=== PATIENT | female | born 1955 | race African-American/Black ===

== ENCOUNTER 2018-05-31 11:09 | Emergency (ER) | payer OTHER, MEDICARE, MEDICAID ==
--- NOTE | 2018-05-31 12:02 | ER Document Report ---
ED Medical Screen (RME) - General Chief Complaint: Leg Pain Stated Complaint: LEG PAIN Time Seen by Provider: 05/31/18 11:46 TRAVEL OUTSIDE OF THE U.S. IN LAST 30 DAYS: No - HPI Patient complains to provider of: Right leg pain Onset: Other - 8-year-old female presents for evaluation of pain and swelling in the right lower extremity postoperatively following a spine surgery at [place]. Denies any shortness of breath chest pain or otherwise. Has never had any clots in the past. - Related Data Allergies/Adverse Reactions: JOSE ANTONIO Inhibitors Allergy (Severe, Verified 05/31/18 11:26) Swollen tongue Past Medical History - Social History Chew tobacco use (# tins/day): No Frequency of alcohol use: Rare Drug Abuse: None - Past Medical History Cardiac Medical History: Reports: Hx Hypertension Denies: Hx Coronary Artery Disease, Hx Heart Attack Pulmonary Medical History: Reports: Hx Asthma - has not used inhaler recently for 3 years Denies: Hx Bronchitis, Hx COPD, Hx Pneumonia Neurological Medical History: Denies: Hx Cerebrovascular Accident, Hx Seizures Renal/ Medical History: Denies: Hx Peritoneal Dialysis Musculoskeltal Medical History: Reports Hx Arthritis Past Surgical History: Reports: Hx Breast Surgery, Hx Cholecystectomy, Hx Orthopedic Surgery - Back, ganglion cyst - Immunizations Hx Diphtheria, Pertussis, Tetanus Vaccination: No Physical Exam - Vital signs Vitals: Temp Pulse Resp BP Pulse Ox 98.4 F 114 H 14 142/92 H 95 05/31/18 11:28 05/31/18 11:28 05/31/18 11:28 05/31/18 11:28 05/31/18 11:28 Course - Re-evaluation Re-evalutation: 8-year-old female postoperative pain and swelling in the right lower extremity, will assess for possible DVT. Has no stigmata of phlegmasia at this time. Will require some further evaluation. 05/31/18 12:00 I have performed a rapid medical screening exam, I have evaluated the patient, I have made a determination based on this patient's medical condition for further evaluation. - Vital Signs Vital signs: Temp Pulse Resp BP Pulse Ox 98.4 F 114 H 14 142/92 H 95 05/31/18 11:28 05/31/18 11:28 05/31/18 11:28 05/31/18 11:28 05/31/18 11:28 Doctor's Discharge - Discharge Referrals: RAAHT LOVE HYDROLOGIC MODELER [Primary Care Provider] - Follow up as needed
--- NOTE | 2018-05-31 14:46 | ER Document Report ---
ED General - General Chief Complaint: Leg Pain Stated Complaint: LEG PAIN Time Seen by Provider: 05/31/18 11:46 TRAVEL OUTSIDE OF THE U.S. IN LAST 30 DAYS: No - HPI Notes: Patient is a 62-year-old female that presents to the emergency department for chief complaint of right leg swelling. Patient reports having a spinal fusion surgery at [place] on 05/19. She was told after surgery to look for any leg swelling. She noticed 2 days ago that she had an area on her right lower leg that was swollen and mildly painful to touch. She denies history of DVT or PE in the past. She denies any difficulty breathing, palpitations or chest pain. She has not taken any [id number] medication for this area. She does state that her back pain has improved since surgery and is feeling much better now. She denies any new concerns with her back. Past Medical History: Reviewed in chart Past Surgical History: Spinal fusion Social History: Reviewed in chart Family History: Reviewed and noncontributory for presenting illness Allergies: Reviewed, see documented allergy list. REVIEW OF SYSTEMS: CONSTITUTIONAL : No fever No chills No diaphoresis No recent illness EENT: No vision changes No congestion No sore throat CARDIOVASCULAR: No chest pain No palpitations RESPIRATORY: No shortness of breath No cough No difficulty breathing GASTROINTESTINAL: No abdominal pain No nausea No vomiting No diarrhea GENITOURINARY: No dysuria No hematuria No difficulty urinating MUSCULOSKELETAL: No back pain leg pain No arm pain SKIN: No rashes No lesions LYMPHATIC: No swollen, enlarged glands. NEUROLOGICAL: No lightheadedness No headache No weakness No paresthesias PSYCHIATRIC: No anxiety No depression PHYSICAL EXAMINATION: Vital signs reviewed, nursing noted reviewed. GENERAL: Well-appearing, well-nourished and in no acute distress. HEAD: Atraumatic, normocephalic. EYES: Eyes appear normal, extraocular movements intact, sclera anicteric, conjunctiva are normal. ENT: nares patent, oropharynx clear without exudates. Moist mucous membranes. NECK: Normal range of motion, supple without lymphadenopathy LUNGS: Breath sounds clear to auscultation bilaterally and equal. No wheezes rales or rhonchi. HEART: Regular rate and rhythm without murmurs ABDOMEN: Soft, nontender, normoactive bowel sounds. No rebound, guarding, or rigidity. No masses appreciated. EXTREMITIES: good range of motion, no pitting or edema. Small area of edema and tenderness on medial right calf. No overlying erythema or calor. No fluctuance. NEUROLOGICAL: No focal neurological deficits. Moves all extremities spontaneously Motor and sensory grossly intact on exam. PSYCH: Normal mood, normal affect. SKIN: Warm, Dry, normal turgor, no rashes or lesions noted on exposed skin - Related Data Allergies/Adverse Reactions: JOSE ANTONIO Inhibitors Allergy (Severe, Verified 05/31/18 11:26) Swollen tongue Past Medical History - Social History Smoking Status: Current Every Day Smoker Chew tobacco use (# tins/day): No Frequency of alcohol use: Rare Drug Abuse: None Family History: Reviewed & Not Pertinent Patient has suicidal ideation: No Patient has homicidal ideation: No - Past Medical History Cardiac Medical History: Reports: Hx Hypertension Denies: Hx Coronary Artery Disease, Hx Heart Attack Pulmonary Medical History: Reports: Hx Asthma - has not used inhaler recently for 3 years Denies: Hx Bronchitis, Hx COPD, Hx Pneumonia Neurological Medical History: Denies: Hx Cerebrovascular Accident, Hx Seizures Renal/ Medical History: Denies: Hx Peritoneal Dialysis Musculoskeletal Medical History: Reports Hx Arthritis Past Surgical History: Reports: Hx Breast Surgery, Hx Cholecystectomy, Hx Orthopedic Surgery - Back, ganglion cyst - Immunizations Hx Diphtheria, Pertussis, Tetanus Vaccination: No Review of Systems - Review of Systems Notes: Dictated Physical Exam - Vital signs Vitals: Temp Pulse Resp BP Pulse Ox 98.4 F 114 H 14 142/92 H 95 05/31/18 11:28 05/31/18 11:28 05/31/18 11:28 05/31/18 11:28 05/31/18 11:28 - Notes Notes: Dictated Course - Re-evaluation Re-evalutation: 05/31/18 14:46 Vitals reviewed. Nursing notes reviewed. Patient offered medication for pain but declined. There is no overlying warmth or erythema and no signs of abscess or cellulitis. 05/31/18 15:12 Venous duplex of right lower extremity negative for acute DVT. Patient will follow with her primary care in the next few days for reevaluation. She will return for new or worsening symptoms. Discharged home in stable condition. - Vital Signs Vital signs: Temp Pulse Resp BP Pulse Ox 98.4 F 114 H 14 142/92 H 95 05/31/18 11:28 05/31/18 11:28 05/31/18 11:28 05/31/18 11:28 05/31/18 11:28 Discharge - Discharge Clinical Impression: Leg swelling Condition: Stable Disposition: HOME, SELF-CARE Instructions: Leg Pain Nonspecific ([facility]) Additional Instructions: Please return to the emergency department if you have any worsening, or concern of your symptoms. Please return to the emergency department if you develop chest pain, difficulty breathing, severe abdominal pain, or ongoing vomiting. Please follow-up with your primary care physician in 2-3 days and any other recommended physicians. If prescribed, take all medications as directed. If you have any questions or concerns do not hesitate to return the emergency department for evaluation. [] Referrals: RAHAT LOVE NP [NO LOCAL MD] - Follow up in 3-5 days
[2018-05-31 15:42] VITALS: BP 138/91
--- NOTE | 2018-05-31 19:27 | XCELERA REPORT ---
[address] [facility] [place] [id number] Lower Extremity Venous Evaluation Procedure: Color flow and duplex imaging of the veins of the right lower extremity as well as the left Common Femoral vein. Right Sided Venous Evaluation Normal vessel filling wall to wall, compression and augmentation as well as Colour flow down to the infrageniculate veins. Left Sided Venous Evaluation The left common femoral vein is fully compressible. Spontaneous and phasic flow is present in the left common femoral vein. Interpretation Summary No duplex evidence of DVT or obstruction in the right lower extremity nor in the left Common Femoral vein. Name: CHIKA CANTU Age: 62 yrs Gender: Female : 1955 Patient Status: Emergency Patient Location: ER Study Date: 05/31/2018 01:47 PM Reason For Study: concern for DVT RLE Ordering Physician: MARIUSZ LALA Performed By: Lashanda Nevarez : MARIUSZ LALA > Donald Castaneda
== END 2018-05-31 15:42 | disposition home or self-care (01) ==
LOC: ER 11:09
DX: M79.89 Other specified soft tissue disorders (principal); M79.606 Pain in leg, unspecified; F17.200 Nicotine dependence, unspecified, uncomplicated; I10 Essential (primary) hypertension; J45.909 Unspecified asthma, uncomplicated; Z98.1 Arthrodesis status; Z88.8 Allergy status to other drugs, medicaments and biological substances
CPT/HCPCS: 93971; 99283

== ENCOUNTER 2018-10-25 13:41 | Emergency (ER) | payer MEDICARE, MEDICAID ==
[2018-10-25 15:16] LABS: ABSOLUTE EOSINOPHILS # (AUTO) 0.1 10^3/uL (0.0-0.6); ABSOLUTE LYMPHOCYTES (AUTO) 3.1 10^3/uL (0.5-4.7); ABSOLUTE MONOCYTES (AUTO) 0.5 10^3/uL (0.1-1.4); BASOPHILS % (AUTO) 0.4 % (0-2); EOSINOPHILS % (AUTO) 1.2 % (0-6); HEMATOCRIT 43.3 % (36.0-47.0); LYMPHOCYTES % (AUTO) 45.9 % (13-45); MEAN CORPUSCULAR HEMOGLOBIN 29.6 pg (27.0-33.4); MEAN CORPUSCULAR HGB CONC 34.6 g/dL (32.0-36.0); MEAN CORPUSCULAR VOLUME 86 fl (80-97); PLATELET COUNT 264 10^3/uL (150-450); RED BLOOD COUNT 5.06 10^6/uL (3.72-5.28); RED CELL DISTRIBUTION WIDTH 14.4 % (11.5-14.0); SEGMENTED NEUTROPHILS % (AUTO) 44.5 % (42-78); TOTAL CELLS COUNTED % (AUTO) 100 %; WHITE BLOOD COUNT 6.7 10^3/uL (4.0-10.5)
[2018-10-25 15:38] LABS: ALANINE AMINOTRANSFERASE 25 U/L (9-52); ALBUMIN 4.9 g/dL (3.5-5.0); ALKALINE PHOSPHATASE 97 U/L (38-126); ANION GAP 12 (5-19); ASPARTATE AMINO TRANSFERASE 23 U/L (14-36); BILIRUBIN,DIRECT 0.1 mg/dL (0.0-0.4); BILIRUBIN,TOTAL 0.4 mg/dL (0.2-1.3); BLOOD UREA NITROGEN 18 mg/dL (7-20); CALCIUM 10.2 mg/dL (8.4-10.2); CARBON DIOXIDE 31 mmol/L (22-30); CHLORIDE 100 mmol/L (98-107); GLUCOSE 91 mg/dL (75-110); POTASSIUM 4.2 mmol/L (3.6-5.0); SODIUM 142.8 mmol/L (137-145); TOTAL PROTEIN 8.8 g/dL (6.3-8.2)
[2018-10-25 15:54] LABS: FREE T3 3.42 pg/mL (2.77-5.27); FREE T4 (FREE THYROXINE) 1.18 ng/dL (0.78-2.19)
[2018-10-25 16:07] LABS: THYROID STIMULATING HORMONE 0.79 uIU/mL (0.47-4.68)
--- NOTE | 2018-10-25 16:21 | ER Document Report ---
Entered by ERIC MOCTEZUMA SCRIBE 10/25/18 1442 Acting as scribe for:MIRNA SOTO DO ED Medical Screen (RME) - General Chief Complaint: Palpitations Stated Complaint: DIZZINESS Time Seen by Provider: 10/25/18 14:19 Primary Care Provider: RYAN VERDUGO DO [Primary Care Provider] - Follow up as needed Mode of Arrival: Wheelchair Information source: Patient Notes: Patient is a 52-year-old female presenting to the emergency department com plaining of heart palpitations that 4 days ago. She states that she had a medical friend take her heart rate and she found it to be approximately 103 bpm. She also complains of right ear pain in the right side of the face further stating "it feels funny." She states her heart rate is increased with standing and relieved when sitting. 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 Patient reports taking amlodipine, 81 mg of aspirin, potassium, HCTZ, metformin. I have greeted and performed a rapid initial assessment of the patient. A comprehensive ED assessment and evaluation of the patient, analysis of test results, and completion of the medical decision making process will be conducted by additional ED providers. GENERAL: Alert, interacts well. No acute distress. HEAD: Normocephalic, atraumatic. EYES: Pupils equal, round, and reactive to light. Extraocular movements intact. ENT: Oral mucosa moist, tongue midline. NECK: Full range of motion. Supple. Trachea midline. LUNGS: Clear to auscultation bilaterally, no wheezes, rales, or rhonchi. No respiratory distress. HEART: Regular rate and rhythm. No murmurs, gallops, or rubs. ABDOMEN: Soft, non-tender. Non-distended. Bowel sounds present in all 4 quadrants. No guarding, rigidity, or rebound. EXTREMITIES: Moves all 4 extremities spontaneously. No edema, radial and dorsalis pedis pulses 2/4 bilaterally. No cyanosis. NEUROLOGICAL: Alert and oriented x3. Normal speech. PSYCH: Normal affect, normal mood. SKIN: Warm, dry, normal turgor. No rashes or lesions noted. TRAVEL OUTSIDE OF THE U.S. IN LAST 30 DAYS: No - Related Data Allergies/Adverse Reactions: JOSE ANTONIO Inhibitors Allergy (Severe, Verified 10/25/18 13:42) Swollen tongue Past Medical History - Social History Frequency of alcohol use: Rare Drug Abuse: None - Past Medical History Cardiac Medical History: Reports: Hx Hypertension Denies: Hx Coronary Artery Disease, Hx Heart Attack Pulmonary Medical History: Reports: Hx Asthma - has not used inhaler recently f or 3 years Denies: Hx Bronchitis, Hx COPD, Hx Pneumonia Neurological Medical History: Denies: Hx Cerebrovascular Accident, Hx Seizures Endocrine Medical History: Reports: Hx Diabetes Mellitus Type 2 - borderline Renal/ Medical History: Denies: Hx Peritoneal Dialysis Musculoskeltal Medical History: Reports Hx Arthritis Past Surgical History: Reports: Hx Breast Surgery, Hx Cholecystectomy, Hx Orthopedic Surgery - Back, ganglion cyst, R ankle - Immunizations Hx Diphtheria, Pertussis, Tetanus Vaccination: No Physical Exam - Vital signs Vitals: Temp Pulse Resp BP Pulse Ox 97.9 F 90 18 141/91 H 98 10/25/18 13:56 10/25/18 13:56 10/25/18 13:56 10/25/18 13:56 10/25/18 13:56 Course - Vital Signs Vital signs: Temp Pulse Resp BP Pulse Ox 97.9 F 90 18 141/91 H 98 10/25/18 13:56 10/25/18 13:56 10/25/18 13:56 10/25/18 13:56 10/25/18 13:56 - Laboratory Result Diagrams: 10/25/18 14:43 10/25/18 14:43 Laboratory results interpreted by me: 10/25/18 10/25/18 14:43 14:43 RDW 14.4 H Lymphocytes % 45.9 H Carbon Dioxide 31 H Total Protein 8.8 H Doctor's Discharge - Discharge Referrals: RYAN VERDUGO DO [Primary Care Provider] - Follow up as needed I personally performed the services described in the documentation, reviewed and edited the documentation which was dictated to the scribe in my presence, and it accurately records my words and actions.
[2018-10-25] MEDS ORDERED: MECLIZINE HCL 25 MG TABLET PO ONE (17:10)
[2018-10-25] MEDS ORDERED: ONDANSETRON 4 MG TAB.RAPDIS PO ONE (17:10)
--- NOTE | 2018-10-25 17:32 | ER Document Report ---
ED General - General Chief Complaint: Palpitations Stated Complaint: DIZZINESS Time Seen by Provider: 10/25/18 14:19 Primary Care Provider: RYAN VERDUGO DO [NO LOCAL MD] - Follow up tomorrow Mode of Arrival: Wheelchair Information source: Patient, [facility] Records Notes: 62-year-old female presents with complaint of dizziness, palpitations. Patient states dizziness started 4 days prior to arrival. She describes it as the room spinning. She states that it is worse when she turns her head to the right or lays onto her right side. Patient has had associated intermittent aching headache. This morning she awoke with right ear fullness and right facial numb ness which is new for her. 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 Denies any recent illness. TRAVEL OUTSIDE OF THE [place].S. IN LAST 30 DAYS: No - HPI Onset: Other Onset/Duration: Intermittent Quality of pain: Achy Severity: Mild Associated symptoms: Earache. denies: Body/muscle aches, Chest pain, Diarrhea, Fever, Nausea, Vomiting Exacerbated by: Standing, Movement, Walking Relieved by: Supine, Remaining still Similar symptoms previously: Yes Recently seen / treated by doctor: No - Related Data Allergies/Adverse Reactions: JOSE ANTONIO Inhibitors Allergy (Severe, Verified 10/25/18 13:42) Swollen tongue Past Medical History - General Information source: Patient - Social History Smoking Status: Former Smoker Frequency of alcohol use: Rare Drug Abuse: None Lives with: Family Family History: Reviewed & Not Pertinent Patient has suicidal ideation: No Patient has homicidal ideation: No - Past Medical History Cardiac Medical History: Reports: Hx Hypertension Denies: Hx Coronary Artery Disease, Hx Heart Attack Pulmonary Medical History: Reports: Hx Asthma - has not used inhaler recently for 3 years Denies: Hx Bronchitis, Hx COPD, Hx Pneumonia Neurological Medical History: Denies: Hx Cerebrovascular Accident, Hx Seizures Endocrine Medical History: Reports: Hx Diabetes Mellitus Type 2 - borderline Renal/ Medical History: Denies: Hx Peritoneal Dialysis Musculoskeletal Medical History: Reports Hx Arthritis Past Surgical History: Reports: Hx Breast Surgery, Hx Cholecystectomy, Hx Orthopedic Surgery - Back, ganglion cyst, R ankle - Immunizations Hx Diphtheria, Pertussis, Tetanus Vaccination: No Review of Systems - Review of Systems Constitutional: denies: Fever, Recent illness EENT: Other - Ear fullness. denies: Blurred vision, Difficulty swallowing, Mouth pain Cardiovascular: Palpitations, Dizziness. denies: Chest pain Respiratory: denies: Cough, Short of breath Gastrointestinal: denies: Nausea, Vomiting, Poor appetite, Poor fluid intake Genitourinary: denies: Flank pain Female Genitourinary: No symptoms reported Musculoskeletal: denies: Back pain Skin: denies: Rash Hematologic/Lymphatic: No symptoms reported Neurological/Psychological: Numbness - Right-sided facial numbness. denies: Lost consciousness, Headaches -: Yes All other systems reviewed and negative Physical Exam - Vital signs Vitals: Temp Pulse Resp BP Pulse Ox 97.9 F 90 18 141/91 H 98 10/25/18 13:56 10/25/18 13:56 10/25/18 13:56 10/25/18 13:56 10/25/18 13:56 - Notes Notes: PHYSICAL EXAMINATION: GENERAL: Well-appearing, well-nourished and in no acute distress. HEAD: Atraumatic, normocephalic. EYES: Pupils equal round and reactive to light, extraocular movements intact, conjunctiva are normal. ENT: Nares patent, oropharynx clear without exudates. Moist mucous membranes. NECK: Normal range of motion, supple without lymphadenopathy LUNGS: Breath sounds clear to auscultation bilaterally and equal. No wheezes rales or rhonchi. HEART: Regular rate and rhythm without murmurs ABDOMEN: Soft, nontender, nondistended abdomen. No guarding, no rebound. No masses appreciated. Female : deferred Musculoskeletal: Normal range of motion, no pitting or edema. No cyanosis. NEUROLOGICAL: Neuro exam Mental status; alert and oriented x3. Cranial nerves II through XII intact. Sensation intact to sharp/dull differentiation in all extremities. Motor; normal tone. No abnormal movements appreciated. No pronator drift. Strength tested and 5/5 in bilateral wrist flexion/extension, elbow flexion/extension, shoulder abduction, straight leg raise, knee flexion/extension, ankle dorsiflexion/plantar flexion. Patient ambulates with a steady gait. Coordination; no ataxia. Finger to nose and heel to stephenson testing intact bilaterally. Reflexes; brachial radialis, biceps, and patellar reflexes within normal limits and symmetric bilaterally. Babinski with downgoing toes bilaterally. NIH-1 for mild ataxia of the right upper extremity PSYCH: Normal mood, normal affect. SKIN: Warm, Dry, normal turgor, no rashes or lesions noted. Course - Re-evaluation Re-evalutation: 10/25/18 17:37 Laboratory 10/25/18 10/25/18 10/25/18 14:43 14:43 14:43 WBC 6.7 RBC 5.06 Hgb 15.0 Hct 43.3 MCV 86 MCH 29.6 MCHC 34.6 RDW 14.4 H Plt Count 264 Seg Neutrophils % 44.5 Lymphocytes % 45.9 H Monocytes % 8.0 Eosinophils % 1.2 Basophils % 0.4 Absolute Neutrophils 3.0 Absolute Lymphocytes 3.1 Absolute Monocytes 0.5 Absolute Eosinophils 0.1 Absolute Basophils 0.0 Sodium 142.8 Potassium 4.2 Chloride 100 Carbon Dioxide 31 H Anion Gap 12 BUN 18 Creatinine 0.82 Est GFR ( Amer) > 60 Est GFR (Non-Af Amer) > 60 Glucose 91 Calcium 10.2 Total Bilirubin 0.4 Direct Bilirubin 0.1 Neonat Total Bilirubin Not Reportable Neonat Direct Bilirubin Not Reportable Neonat Indirect Bili Not Reportable AST 23 ALT 25 Alkaline Phosphatase 97 Troponin I Total Protein 8.8 H Albumin 4.9 TSH 0.79 Free T4 1.18 Free T3 pg/mL 3.42 10/25/18 14:43 WBC RBC Hgb Hct MCV MCH MCHC RDW Plt Count Seg Neutrophils % Lymphocytes % Monocytes % Eosinophils % Basophils % Absolute Neutrophils Absolute Lymphocytes Absolute Monocytes Absolute Eosinophils Absolute Basophils Sodium Potassium Chloride Carbon Dioxide Anion Gap BUN Creatinine Est GFR ( Amer) Est GFR (Non-Af Amer) Glucose Calcium Total Bilirubin Direct Bilirubin Neonat Total Bilirubin Neonat Direct Bilirubin Neonat Indirect Bili AST ALT Alkaline Phosphatase Troponin I < 0.012 Total Protein Albumin TSH Free T4 Free T3 pg/mL Temp Pulse Resp BP Pulse Ox 97.9 F 90 18 141/91 H 100 10/25/18 13:56 10/25/18 13:56 10/25/18 13:56 10/25/18 13:56 10/25/18 16:[address] 10/25/18 17:09 IMPRESSION: No acute intracranial findings.Postsurgical changes in the right fronto-temporal region. EVIDENCE OF ACUTE STROKE: NO. Head MRI 10/25/18 17:09 IMPRESSION: Negative for acute or subacute infarction.NO ENHANCING LESIONS. Scattered high-signal intensity lesions scattered throughout the white matter on FLAIR imaging with distribution suggesting chronic microvascular ischemic change. . EVIDENCE OF ACUTE STROKE: NO. Temp Pulse Resp BP Pulse Ox 97.4 F 90 27 H 137/94 H 97 10/25/18 20:00 10/25/18 13:56 10/25/18 21:00 10/25/18 21:14 10/25/18 21:00 10/25/18 19:18 Patient reevaluated and reports improvement of her dizziness. Patient has been eating and drinking normally. Patient is ambulating without difficulty. She has no neuro deficits except for mild ataxia which resolved on reevaluation. CT of the brain shows postsurgical changes in the right frontal temporal region. MRI of the brain is negative for acute or subacute infarct. Patient was provided copies of her imaging today. She was urged to follow-up with her neurologist. Patient was discharged home in stable condition. 10/26/18 00:26 10/27/18 00:29 - Vital Signs Vital signs: Temp Pulse Resp BP Pulse Ox 97.4 F 90 27 H 137/94 H 97 10/25/18 20:00 10/25/18 13:56 10/25/18 21:00 10/25/18 21:14 10/25/18 21:00 - Laboratory Result Diagrams: 10/25/18 14:43 10/25/18 14:43 Laboratory results interpreted by me: 10/25/18 10/25/18 14:43 14:43 RDW 14.4 H Lymphocytes % 45.9 H Carbon Dioxide 31 H Total Protein 8.8 H - Diagnostic Test Radiology reviewed: Image reviewed, Reports reviewed Discharge - Discharge Clinical Impression: Dizziness, Palpitations Condition: Good Disposition: HOME, SELF-CARE Instructions: Dizziness ([facility]), Palpitations (Irregular or Rapid Heartrate) ([facility]) Additional Instructions: Follow up with your [id number] hours for further care or return to the ED IMMEDIATELY if symptoms worsen or you have any concerns. If you cannot afford to follow up with your primary care physician a list of low cost clinics have been provided at the end of your discharge papers as well. Most prescribed medications have multiple side effects. The safest thing to do is when filling your prescription speak to your pharmacist regarding possible interactions with your normal home medications and over the counter medications such as Ibuprofen, Tylenol, Benadryl. If you experience any symptoms that cause you discomfort or concern you should discontinue the medication immediately and return to the emergency room or call your primary care physician. Prescriptions: RX: Meclizine HCl [Antivert 25 mg Tablet] 25 mg PO TID PRN #21 tablet PRN Reason: Forms: Elevated Blood Pressure Referrals: RYAN VERDUGO DO [NO LOCAL MD] - Follow up tomorrow
--- NOTE | 2018-10-25 18:11 | RADIOLOGY REPORT (SQ) ---
EXAM DESCRIPTION: CT HEAD WITHOUT COMPLETED DATE/TIME: 10/25/2018 5:25 pm REASON FOR STUDY: Right-sided weakness, numbness COMPARISON: None. TECHNIQUE: Axial images acquired through the brain without intravenous contrast. Images reviewed wi th bone, brain and subdural windows. Images stored on PACS. All CT scanners at this facility use dose modulation, iterative reconstruction, and/or weight based d osing when appropriate to reduce radiation dose to as low as reasonably achievable (ALARA). [facility]: Dose Right [facility]: CareDose [facility]: Dose Right [facility]: Teradose 4D [facility]: Smart Teedot RADIATION DOSE: CT Rad equipment meets quality standard of care and radiation dose reduction techniq ues were employed. CTDIvol: 53.2 mGy. DLP: 1017 mGy-cm. mGy. LIMITATIONS: None. FINDINGS: VENTRICLES: Normal size and contour. CEREBRUM: No masses. No hemorrhage. No midline shift. No evidence for acute infarction. Normal gra y/white matter differentiation. No areas of low density in the white matter. CEREBELLUM: No masses. No hemorrhage. No alteration of density. No evidence for acute infarction. EXTRAAXIAL SPACES: No fluid collections. No masses. ORBITS AND GLOBE: No intra- or extraconal masses. Normal contour of globe without masses. CALVARIUM: Postsurgical changes in the right fronto-temporal region. No fracture. PARANASAL SINUSES: No fluid or mucosal thickening. SOFT TISSUES: No mass or hematoma. OTHER: No other significant finding. IMPRESSION: No acute intracranial findings.Postsurgical changes in the right fronto-temporal region. EVIDENCE OF ACUTE STROKE: NO. COMMENT: Quality ID # [id number]: Final reports with documentation of one or more dose reduction techniques (e.g., Automated exposure control, adjustment of the mA and/or kV according to patient size, use of iterative reconstruction technique) TECHNICAL DOCUMENTATION: JOB ID: [id number] [place]-72 2010 [employer]- All Rights Reserved Reading location - IP/workstation name: [email or web address]
--- NOTE | 2018-10-25 19:30 | RADIOLOGY REPORT (SQ) ---
EXAM DESCRIPTION: MRI HEAD COMBO COMPLETED DATE/TIME: 10/25/2018 7:11 pm REASON FOR STUDY: right sided weakness COMPARISON: Earlier head CT TECHNIQUE: Multiplanar imaging includes noncontrasted T1, T2, FLAIR, and Diffusion with ADC map seq uences. Contrast enhanced T1 images. Images stored on PACS. CONTRAST TYPE AND DOSE: 15 mL Dotarem. RENAL FUNCTION: Not indicated. ACR Type II contrast agent associated with few, if any, unconfounded cases of NSF LIMITATIONS: None. FINDINGS: ANATOMY: No anomalies. Normal vascular flow voids. Pituitary fossa normal. CSF SPACES: Normal size and contour. No hemorrhage. CEREBRUM: Scattered high-signal intensity lesions scattered throughout the white matter on FLAIR imag ing with distribution suggesting chronic microvascular ischemic change. Sulci and gyri normal in size and contour. No evidence of hemorrhage, mass or extraaxial fluid collection. No enhancing lesions. POSTERIOR FOSSA: No signal alteration. No hemorrhage. No edema, masses or mass effect. Internal audit ory canals, cerebello-pontine angles, mastoids normal. DIFFUSION: Negative for acute or subacute infarction. ORBITS: No masses. Globes normal. PARANASAL SINUSES: No fluid levels. Mucosa normal. OTHER: No other significant finding. IMPRESSION: Negative for acute or subacute infarction.NO ENHANCING LESIONS. Scattered high-signal in tensity lesions scattered throughout the white matter on FLAIR imaging with distribution suggesting c hronic microvascular ischemic change. . EVIDENCE OF ACUTE STROKE: NO. TECHNICAL DOCUMENTATION: JOB ID: [id number] [place]-72 2010 [employer]- All Rights Reserved Reading location - IP/workstation name: [email or web address]
[2018-10-25 21:14] VITALS: BP 137/94
--- NOTE | 2018-10-26 01:30 | EKG REPORT ---
SEVERITY:- NORMAL ECG - SINUS RHYTHM : Confirmed by: Ifeoma Marte MD 26-Oct-2018 01:29:23
== END 2018-10-25 21:14 | disposition home or self-care (01) ==
LOC: ER 13:41
DX: R42 Dizziness and giddiness (principal); R00.2 Palpitations; G93.9 Disorder of brain, unspecified; R27.0 Ataxia, unspecified; R51 Headache; R20.0 Anesthesia of skin; H92.09 Otalgia, unspecified ear; I10 Essential (primary) hypertension; J45.909 Unspecified asthma, uncomplicated; Z87.891 Personal history of nicotine dependence; Z88.8 Allergy status to other drugs, medicaments and biological substances
CPT/HCPCS: 93005; 99284; 36415; 84439; 84443; 85025; 80053; 84484; 84481; 70553; 70450; 93010; A9270 ×2; S0119

== ENCOUNTER 2019-01-08 11:46 | Emergency (ER) | payer OTHER, MEDICARE, MEDICAID ==
--- NOTE | 2019-01-08 12:28 | ER Document Report ---
ED Medical Screen (RME) - General Chief Complaint: Breathing Difficulty Stated Complaint: DIFFICULTY BREATHING Time Seen by Provider: 01/08/19 12:23 Mode of Arrival: Ambulatory Information source: Patient Notes: Patient presents emergency department with complaints of difficulty breathing for the past week. She reports that she is unable to lay flat has to prop herself up with a couple pillows because of the difficulty breathing. She denies other symptoms such as fever vomiting diarrhea. When she is walking around she does not feel as bad. She reports she still feels labored breathing but not as bad as when she tries to sit down or lay down. Denies history of cardiac disease. Reports history of asthma no wheezing noted respiratory rate even unlabored sinus tach I have greeted and performed a rapid initial assessment of this patient. A comprehensive ED assessment and evaluation of the patient, analysis of test results and completion of the medical decision making process will be conducted by additional ED providers. Dictation of this chart was performed using voice recognition software; therefore, there may be some unintended grammatical errors. TRAVEL OUTSIDE OF THE [place] IN LAST 30 DAYS: No - Related Data Allergies/Adverse Reactions: JOSE ANTONIO Inhibitors Allergy (Severe, Verified 01/08/19 11:47) Swollen tongue Past Medical History - Past Medical History Cardiac Medical History: Reports: Hx Hypertension Denies: Hx Coronary Artery Disease, Hx Heart Attack Pulmonary Medical History: Reports: Hx Asthma - has not used inhaler recently for 3 years Denies: Hx Bronchitis, Hx COPD, Hx Pneumonia Neurological Medical History: Denies: Hx Cerebrovascular Accident, Hx Seizures Endocrine Medical History: Reports: Hx Diabetes Mellitus Type 2 - borderline Renal/ Medical History: Denies: Hx Peritoneal Dialysis Musculoskeltal Medical History: Reports Hx Arthritis Past Surgical History: Reports: Hx Breast Surgery, Hx Cholecystectomy, Hx Orthopedic Surgery - Back, ganglion cyst, R ankle - Immunizations Hx Diphtheria, Pertussis, Tetanus Vaccination: No Physical Exam - Vital signs Vitals: Temp Pulse Resp BP Pulse Ox 97.8 F 104 H 22 H 144/85 H 98 01/08/19 11:55 01/08/19 11:55 01/08/19 11:55 01/08/19 11:55 01/08/19 11:55 Course - Vital Signs Vital signs: Temp Pulse Resp BP Pulse Ox 97.8 F 104 H 22 H 144/85 H 98 01/08/19 11:55 01/08/19 11:55 01/08/19 11:55 01/08/19 11:55 01/08/19 11:55
--- NOTE | 2019-01-08 13:44 | RADIOLOGY REPORT (SQ) ---
EXAM DESCRIPTION: CHEST 2 VIEWS COMPLETED DATE/TIME: 01/08/2019 1:32 pm REASON FOR STUDY: difficulty breathing COMPARISON: 03/24/2016 TECHNIQUE: Frontal and lateral radiographic views of the chest acquired. NUMBER OF VIEWS: Two view. LIMITATIONS: None. FINDINGS: LUNGS AND PLEURA: No pneumothorax. No consolidation or pleural effusion. MEDIASTINUM AND HILAR STRUCTURES: Stable. HEART AND VASCULAR STRUCTURES: Stable. BONES: No acute findings. HARDWARE: None in the chest. OTHER: No other significant finding. IMPRESSION: NO ACUTE FINDINGS. TECHNICAL DOCUMENTATION: JOB ID: [id number] [place]-72 2010 [employer]- All Rights Reserved Reading location - IP/workstation name: [email or web address]
[2019-01-08 13:45] LABS: ABSOLUTE EOSINOPHILS # (AUTO) 0.1 10^3/uL (0.0-0.6); ABSOLUTE LYMPHOCYTES (AUTO) 2.4 10^3/uL (0.5-4.7); ABSOLUTE MONOCYTES (AUTO) 0.4 10^3/uL (0.1-1.4); BASOPHILS % (AUTO) 0.5 % (0-2); EOSINOPHILS % (AUTO) 1.3 % (0-6); HEMATOCRIT 43.2 % (36.0-47.0); HEMOGLOBIN 14.6 g/dL (12.0-15.5); LYMPHOCYTES % (AUTO) 41.1 % (13-45); MEAN CORPUSCULAR HEMOGLOBIN 29.3 pg (27.0-33.4); MEAN CORPUSCULAR HGB CONC 33.8 g/dL (32.0-36.0); MEAN CORPUSCULAR VOLUME 86 fl (80-97); PLATELET COUNT 258 10^3/uL (150-450); RED CELL DISTRIBUTION WIDTH 14.2 % (11.5-14.0); SEGMENTED NEUTROPHILS % (AUTO) 51.1 % (42-78); TOTAL CELLS COUNTED % (AUTO) 100 %; WHITE BLOOD COUNT 5.9 10^3/uL (4.0-10.5)
[2019-01-08 13:52] LABS: ALANINE AMINOTRANSFERASE 23 U/L (9-52); ALBUMIN 4.3 g/dL (3.5-5.0); ALKALINE PHOSPHATASE 98 U/L (38-126); ANION GAP 12 (5-19); ASPARTATE AMINO TRANSFERASE 24 U/L (14-36); BILIRUBIN,DIRECT 0.2 mg/dL (0.0-0.4); BILIRUBIN,TOTAL 0.5 mg/dL (0.2-1.3); BLOOD UREA NITROGEN 10 mg/dL (7-20); CALCIUM 10.3 mg/dL (8.4-10.2); CARBON DIOXIDE 29 mmol/L (22-30); CHLORIDE 103 mmol/L (98-107); CREATINE KINASE 143 U/L (30-135); GLUCOSE 134 mg/dL (75-110); POTASSIUM 3.5 mmol/L (3.6-5.0); SODIUM 144.2 mmol/L (137-145); TOTAL PROTEIN 8.2 g/dL (6.3-8.2)
[2019-01-08 14:03] LABS: NT PRO BNP 19 pg/mL (5-900)
[2019-01-08 14:06] LABS: TROPONIN I < 0.012 ng/mL
[2019-01-08 14:38] LABS: APPEARANCE,URINE CLOUDY; BILIRUBIN,URINE NEGATIVE (NEGATIVE); COLOR,URINE YELLOW; GLUCOSE, URINE NEGATIVE (NEGATIVE); KETONES,URINE NEGATIVE (NEGATIVE); LEUKOCYTE ESTERASE,URINE NEGATIVE (NEGATIVE); NITRITE,URINE NEGATIVE (NEGATIVE); PROTEIN,URINE NEGATIVE (NEGATIVE); URINE SPECIFIC GRAVITY 1.013; UROBILINOGEN,URINE NEGATIVE mg/dL (<2.0)
[2019-01-08] MEDS ORDERED: ALBUTEROL SULFATE HFA (90 MCG/PUFF) 8 GM MDI (1 MDI/ER DISP) IH ONE (14:42)
[2019-01-08 15:34] VITALS: BP 140/86
--- NOTE | 2019-01-08 17:42 | EKG REPORT ---
SEVERITY:- OTHERWISE NORMAL ECG - SINUS TACHYCARDIA BORDERLINE LEFT AXIS DEVIATION : Confirmed by: Fernie Ivan MD 08-Jan-2019 17:42:10
--- NOTE | 2019-01-08 22:44 | ER Document Report ---
Entered by VENKAT BRANCH SCRIBE 01/08/19 1443 Acting as scribe for:MIRNA SOTO DO ED General - General Chief Complaint: Breathing Difficulty Stated Complaint: BREATHING DIFFICULTY Time Seen by Provider: 01/08/19 12:23 Primary Care Provider: VIANCA,JOSHUA [Primary Care Provider] - Follow up as needed Mode of Arrival: Ambulatory Notes: Patient is a 63-year-old female presents the emergency department complaining of shortness of breath that started approximately 1 week ago, patient states that the shortness of breath gets progressively worse as the day goes on however completely resolved by the time she wakes up the next morning. It is worsened with laying flat. The cough is productive of minimal phlegm, she did start taking an epinephrine inhaler recently which causes her to cough briefly but otherwise does not change the shortness of breath. This was not prescribed by physician, she got it from a pharmacist. Patient denies any blurred vision, drooping eyelids, chest pain, or hoarse voice or history of myasthenia gravis. She does have intermittent tingling in her fingers. TRAVEL OUTSIDE OF THE [place] IN LAST 30 DAYS: No - Related Data Allergies/Adverse Reactions: JOSE ANTONIO Inhibitors Allergy (Severe, Verified 01/08/19 11:47) Swollen tongue Past Medical History - General Information source: Patient - Social History Smoking Status: Former Smoker - Quit in July 2018 Cigarette use (# per day): No Chew tobacco use (# tins/day): No Frequency of alcohol use: None Drug Abuse: None Family History: Reviewed & Not Pertinent Patient has suicidal ideation: No Patient has homicidal ideation: No - Past Medical History Cardiac Medical History: Reports: Hx Hypertension Pulmonary Medical History: Reports: Hx Asthma EENT Medical History: Reports: Eyes - Glaucoma Endocrine Medical History: Reports: Hx Diabetes Mellitus Type 2 - borderline Musculoskeletal Medical History: Reports Hx Arthritis Psychiatric Medical History: Reports: Hx Depression Past Surgical History: Reports: Hx Breast Surgery, Hx Cholecystectomy, Hx Orthopedic Surgery - Back, ganglion cyst, R ankle - Immunizations Hx Diphtheria, Pertussis, Tetanus Vaccination: No Review of Systems - Review of Systems Constitutional: No symptoms reported EENT: See HPI, Nose congestion. denies: Blurred vision Cardiovascular: See HPI, Orthopnea. denies: Chest pain Respiratory: See HPI, Cough, Short of breath Gastrointestinal: No symptoms reported Genitourinary: No symptoms reported Female Genitourinary: No symptoms reported Musculoskeletal: No symptoms reported Skin: No symptoms reported Hematologic/Lymphatic: No symptoms reported Neurological/Psychological: See HPI, Tingling -: Yes All other systems reviewed and negative Physical Exam - Vital signs Vitals: Temp Pulse Resp BP Pulse Ox 97.8 F 104 H 22 H 144/85 H 98 01/08/19 11:55 01/08/19 11:55 01/08/19 11:55 01/08/19 11:55 01/08/19 11:55 Interpretation: Tachycardic - Notes Notes: PHYSICAL EXAM GENERAL: Alert, interacts well. No acute distress. HEAD: Normocephalic, atraumatic. EYES: Pupils equal, round, and reactive to light. Extraocular movements intact. ENT: Oral mucosa moist, tongue midline. NECK: Full range of motion. Supple. Trachea midline. LUNGS: Clear to auscultation bilaterally, no wheezes, rales, or rhonchi. No respiratory distress. HEART: Regular rate and rhythm. No murmurs, gallops, or rubs. ABDOMEN: Soft, non-tender. Non-distended. Bowel sounds present in all 4 quadrants. No guarding, rigidity, or rebound. EXTREMITIES: Moves all 4 extremities spontaneously. No edema, radial and dorsalis pedis pulses 2/4 bilaterally. No cyanosis. NEUROLOGICAL: Alert and oriented x3. Normal speech. PSYCH: Normal affect, normal mood. SKIN: Warm, dry, normal turgor. No rashes or lesions noted. Course - Re-evaluation Re-evalutation: 01/08/19 14:49 CBC unremarkable, CMP grossly unremarkable, glucose is elevated but this is nonfasting, cardiac enzymes negative, proBNP normal, urinalysis shows small blood but only 5 RBCs, none if this would be connected to hematuria, chest x-ray is unremarkable, EKG is nonischemic. Patient has not actually had any chest pain with this. It is somewhat confusing that the patient's shortness of breath resets every night and gets progressively worse as the day goes on. Symptoms like these make me concern for neuromuscular disorder such as myasthenia gravis. Patient has not had any eyelid fatigue or difficulty swallowing or hoarse voice however I have suggested to the patient that she follow-up with chief innovation officer if her symptoms persist to have pulmonary function testing performed. Of note the patient did just start taking medications for her glaucoma, although less likely if she is taking beta-geni eyedrops patient could have fatigue associated with that. Patient cannot recall what which eyedrops she is taking at this time. Patient is encouraged to follow-up with pulmonology and primary care physician. Discharged home. 01/08/19 14:[address] for epinephrine inhaler patient has been given an albuterol inhaler to use in the evenings when she is feeling more short of breath as she does have a history of asthma. Patient is instructed to stop using an epinephrine inhaler unless it is prescribed by a physician. - Vital Signs Vital signs: Temp Pulse Resp BP Pulse Ox 97.5 F 90 18 140/86 H 96 01/08/19 15:32 01/08/19 15:32 01/08/19 15:32 01/08/19 15:32 01/08/19 15:32 - Laboratory Result Diagrams: 01/08/19 13:05 01/08/19 13:05 Laboratory results interpreted by me: 01/08/19 01/08/19 01/08/19 13:05 13:05 13:47 RDW 14.2 H Potassium 3.5 L Glucose 134 H Calcium 10.3 H Creatine Kinase 143 H Urine Blood SMALL H - EKG Interpretation by Me Additional EKG results interpreted by me: 01/08/19 14:50 EKG shows sinus tachycardia at a rate of 103, normal axis, normal intervals, normal R wave progression, no ST segment elevations or depressions, no T wave inversions per my interpretation. Discharge - Discharge Clinical Impression: Dyspnea Qualifiers: Dyspnea type: shortness of breath Qualified Code(s): R06.02 - Shortness of breath; R06.00 - Dyspnea, unspecified; R06.01 - Orthopnea Condition: Stable Disposition: HOME, SELF-CARE Additional Instructions: I do not know exactly why you have shortness of breath. I am concerned that it gets worse as the day goes on but then completely resets in the morning. I would like you to follow-up with a chief innovation officer for pulmonary function testing to see how well you are able to draw a deep breath and how while you are able to blow it out. Sometimes worsening shortness of breath as the day goes on that is not reversible by inhalers and is only reversible by sleep can be a sign of some rare disorders such as myasthenia gravis. Other signs of this disorder would be difficulty swallowing, droopy eyelids as the day goes on or hoarse voice. You will need to follow-up as an outpatient with your primary care doctor for some specialized testing if you develop the symptoms as well. Stop using the epinephrine inhaler. Start using the albuterol inhaler 2 puffs every 4 hours as needed. It is okay if you only use it in the afternoons when you are feeling short of breath. If it does not improve your shortness of breath you do not have to keep taking it at all. You could not recall exactly which eyedrops you were using for your glaucoma. Rarely can the eyedrops that you take for your glaucoma cause some systemic fatigue. Please follow-up with your assembler ping pong table to ask about the side effects of the eyedrops. Referrals: [facility] [Primary [facility] Provider] - Follow up as needed I personally performed the services described in the documentation, reviewed and edited the documentation which was dictated to the scribe in my presence, and it accurately records my words and actions.
== END 2019-01-08 15:32 | disposition home or self-care (01) ==
LOC: ER 11:46
DX: J45.909 Unspecified asthma, uncomplicated (principal); R06.02 Shortness of breath; R05 Cough; R20.2 Paresthesia of skin; R06.01 Orthopnea; R00.0 Tachycardia, unspecified; R09.81 Nasal congestion; I10 Essential (primary) hypertension; H40.9 Unspecified glaucoma; Z88.8 Allergy status to other drugs, medicaments and biological substances; Z87.891 Personal history of nicotine dependence
CPT/HCPCS: 93005; 99285; 36415; 82550; 85025; 80053; 81001; 84484; 83880; 71046; 93010; J3490